=== PATIENT | female | born 1960 | race Caucasian/White ===

== ENCOUNTER → 2016-09-29 | Outpatient (CLI) | payer BC, OTHER ==
[2016-09-29 08:04] LABS: APPEARANCE,URINE CLEAR; BILIRUBIN,URINE NEGATIVE (NEGATIVE); GLUCOSE, URINE NEGATIVE (NEGATIVE); KETONES,URINE NEGATIVE (NEGATIVE); LEUKOCYTE ESTERASE,URINE TRACE (NEGATIVE); NITRITE,URINE NEGATIVE (NEGATIVE); PROTEIN,URINE NEGATIVE (NEGATIVE); URINE SPECIFIC GRAVITY 1.015; UROBILINOGEN,URINE NEGATIVE mg/dL (<2.0)
[2016-09-29 08:33] LABS: ANION GAP 11 (5-19); BLOOD UREA NITROGEN 20 mg/dL (7-20); CALCIUM 9.5 mg/dL (8.4-10.2); CARBON DIOXIDE 26 mmol/L (22-30); CHLORIDE 107 mmol/L (98-107); CREATININE RESULT 1.04 mg/dL (0.52-1.25); GLUCOSE 110 mg/dL (75-110); POTASSIUM 4.2 mmol/L (3.6-5.0); SODIUM 143.8 mmol/L (137-145)
[2016-09-30 11:38] LABS: CREATININE URINE 149.5 mg/dL (Not Estab.); MICROALBUMIN URINE 41.4 ug/mL (Not Estab.)
== END ==
LOC: OD 07:19
PROVIDERS: ATTEND Internal Medicine Nephrology
DX: N18.3 Chronic kidney disease, stage 3 (moderate) (principal)
CPT/HCPCS: 36415; 80048; 81001; 82043; 82570

== ENCOUNTER → 2017-05-10 | Outpatient (CLI) | payer BC, OTHER ==
[2017-05-10 08:22] LABS: APPEARANCE,URINE CLEAR; BILIRUBIN,URINE NEGATIVE (NEGATIVE); COLOR,URINE YELLOW; GLUCOSE, URINE NEGATIVE (NEGATIVE); KETONES,URINE NEGATIVE (NEGATIVE); LEUKOCYTE ESTERASE,URINE NEGATIVE (NEGATIVE); NITRITE,URINE NEGATIVE (NEGATIVE); PROTEIN,URINE NEGATIVE (NEGATIVE); URINE SPECIFIC GRAVITY 1.017; UROBILINOGEN,URINE NEGATIVE mg/dL (<2.0)
[2017-05-10 08:27] LABS: ABSOLUTE BASOPHILS # (AUTO) 0.1 10^3/uL (0.0-0.2); ABSOLUTE EOSINOPHILS # (AUTO) 0.1 10^3/uL (0.0-0.6); ABSOLUTE LYMPHOCYTES (AUTO) 1.8 10^3/uL (0.5-4.7); ABSOLUTE MONOCYTES (AUTO) 0.4 10^3/uL (0.1-1.4); BASOPHILS % (AUTO) 0.8 % (0-2); EOSINOPHILS % (AUTO) 1.5 % (0-6); HEMATOCRIT 41.9 % (36.0-47.0); LYMPHOCYTES % (AUTO) 27.8 % (13-45); MEAN CORPUSCULAR HEMOGLOBIN 27.3 pg (27.0-33.4); MEAN CORPUSCULAR HGB CONC 33.4 g/dL (32.0-36.0); MEAN CORPUSCULAR VOLUME 82 fl (80-97); MONOCYTES % (AUTO) 6.5 % (3-13); PLATELET COUNT 259 10^3/uL (150-450); RED BLOOD COUNT 5.13 10^6/uL (3.72-5.28); RED CELL DISTRIBUTION WIDTH 13.6 % (11.5-14.0); SEGMENTED NEUTROPHILS % (AUTO) 63.4 % (42-78); TOTAL CELLS COUNTED % (AUTO) 100 %; WHITE BLOOD COUNT 6.3 10^3/uL (4.0-10.5)
[2017-05-10 09:01] LABS: ALBUMIN 4.5 g/dL (3.5-5.0); ANION GAP 14 (5-19); BLOOD UREA NITROGEN 20 mg/dL (7-20); CALCIUM 9.7 mg/dL (8.4-10.2); CARBON DIOXIDE 27 mmol/L (22-30); CHLORIDE 104 mmol/L (98-107); GLUCOSE 107 mg/dL (75-110); PHOSPHORUS 4.5 mg/dL (2.5-4.5); POTASSIUM 4.5 mmol/L (3.6-5.0); SODIUM 144.5 mmol/L (137-145)
[2017-05-11 12:39] LABS: CREATININE URINE 145.8 mg/dL (Not Estab.); MICROALBUMIN URINE 40.8 ug/mL (Not Estab.)
== END ==
LOC: OD 07:41
PROVIDERS: ATTEND Internal Medicine Nephrology
DX: I12.9 Hypertensive chronic kidney disease with stage 1 through stage 4 chronic kidney disease, or unspecified chronic kidney disease (principal); N18.3 Chronic kidney disease, stage 3 (moderate)
CPT/HCPCS: 36415; 80048; 81001; 82040; 82043; 82306; 82570; 83970; 84100; 85025

== ENCOUNTER 2017-12-12 07:28 | Day surgery (SDC) | payer OTHER ==
[~2017-12-12 07:28] MED LIST: DIPHENHYDRAMINE HCL 50 MG/ML VIAL ONE; FLUMAZENIL INJ 0.5 MG/5 ML VIAL ONE; GLUCAGON,HUMAN RECOMB 1 MG INJ ONE; NALOXONE HCL INJ/PF 0.4 MG/1 ML SDV ONE; ONDANSETRON HCL INJ/PF 4 MG/2 ML SDV ONE
[2017-12-12] MEDS: MIDAZOLAM 2 MG/2 ML INJ ONE ×2 (07:47→07:50)
[2017-12-12] MEDS: FENTANYL CITRATE INJ/PF 100 MCG/2 ML AMPUL ONE ×3 (07:48→07:53)
--- NOTE | 2017-12-12 07:59 | Operative Report ---
Operative Report DATE OF SURGERY: 12/12/17 Operative Report: The risks benefits and alternatives of the procedure explained to the patient in detail and informed consent is obtained.A GIF Olympus video scope was inserted into the patient's mouth and hypopharynx, the esophagus is identified intubated and insufflated, the scope was then advanced through the esophagus stomach and duodenum, retroflexion maneuver is done the esophagus stomach and first and second portions of the duodenum examined PREOPERATIVE DIAGNOSIS: Epigastric pain POSTOPERATIVE DIAGNOSIS: Nodular gastritis status post biopsy rule out Helicobacter pylori OPERATION: EGD with biopsy SURGEON: MICHAEL LOPEZ ANESTHESIA: Moderate Sedation - 4 mg of Zofran, 4 mg of Versed, 100 mcg of fentanyl. Conscious sedation monitoring time 30 minutes. TISSUE REMOVED OR ALTERED: As noted above. COMPLICATIONS: None. ESTIMATED BLOOD LOSS: None. INTRAOPERATIVE FINDINGS: As noted above. PROCEDURE: Patient tolerated the procedure well. No immediate postprocedure complications are noted. Patient discharged in good condition. Discharge date 12/12/2017. Discharge diet: Regular. Discharge activity: Regular. 2-3-week follow-up to discuss findings. Patient is instructed call the office or proceed to the emergency room should there be any further problems or questions. Wait on the pathology.
[2017-12-12 09:13] VITALS: BP 108/63
== END 2017-12-12 09:10 | disposition home or self-care (01) ==
LOC: END 07:28
PROVIDERS: ATTEND Internal Medicine Gastroenterology
DX: K29.50 Unspecified chronic gastritis without bleeding (principal); B96.81 Helicobacter pylori [H. pylori] as the cause of diseases classified elsewhere; I12.9 Hypertensive chronic kidney disease with stage 1 through stage 4 chronic kidney disease, or unspecified chronic kidney disease; N18.3 Chronic kidney disease, stage 3 (moderate); F51.01 Primary insomnia
CPT/HCPCS: 43239; 88342 ×2; 88305 ×2; J2250; J3010; J2405; J1200; J1610; J2310; J3490

== ENCOUNTER → 2018-05-13 | Outpatient (CLI) | payer OTHER ==
[2018-05-13 08:24] LABS: ABSOLUTE EOSINOPHILS # (AUTO) 0.1 10^3/uL (0.0-0.6); ABSOLUTE LYMPHOCYTES (AUTO) 1.7 10^3/uL (0.5-4.7); ABSOLUTE MONOCYTES (AUTO) 0.4 10^3/uL (0.1-1.4); ABSOLUTE NEUT (AUTO) 2.9 10^3/uL (1.7-8.2); BASOPHILS % (AUTO) 0.6 % (0-2); EOSINOPHILS % (AUTO) 2.1 % (0-6); HEMATOCRIT 39.6 % (36.0-47.0); HEMOGLOBIN 13.5 g/dL (12.0-15.5); LYMPHOCYTES % (AUTO) 33.1 % (13-45); MEAN CORPUSCULAR HEMOGLOBIN 28.5 pg (27.0-33.4); MEAN CORPUSCULAR HGB CONC 34.2 g/dL (32.0-36.0); MEAN CORPUSCULAR VOLUME 83 fl (80-97); MONOCYTES % (AUTO) 7.6 % (3-13); PLATELET COUNT 215 10^3/uL (150-450); RED BLOOD COUNT 4.75 10^6/uL (3.72-5.28); RED CELL DISTRIBUTION WIDTH 13.2 % (11.5-14.0); SEGMENTED NEUTROPHILS % (AUTO) 56.6 % (42-78); TOTAL CELLS COUNTED % (AUTO) 100 %; WHITE BLOOD COUNT 5.2 10^3/uL (4.0-10.5)
[2018-05-13 08:47] LABS: APPEARANCE,URINE CLEAR; BILIRUBIN,URINE NEGATIVE (NEGATIVE); COLOR,URINE YELLOW; GLUCOSE, URINE NEGATIVE (NEGATIVE); KETONES,URINE NEGATIVE (NEGATIVE); LEUKOCYTE ESTERASE,URINE MODERATE (NEGATIVE); NITRITE,URINE NEGATIVE (NEGATIVE); PROTEIN,URINE NEGATIVE (NEGATIVE); UROBILINOGEN,URINE NEGATIVE mg/dL (<2.0)
[2018-05-13 08:51] LABS: ALBUMIN 3.9 g/dL (3.5-5.0); ANION GAP 10 (5-19); BLOOD UREA NITROGEN 21 mg/dL (7-20); CALCIUM 9.6 mg/dL (8.4-10.2); CARBON DIOXIDE 30 mmol/L (22-30); CHLORIDE 101 mmol/L (98-107); GLUCOSE 109 mg/dL (75-110); PHOSPHORUS 4.2 mg/dL (2.5-4.5); POTASSIUM 3.3 mmol/L (3.6-5.0); SODIUM 141.2 mmol/L (137-145)
[2018-05-14 12:38] LABS: CREATININE URINE 152.4 mg/dL (Not Estab.); MICROALBUMIN URINE 3.8 ug/mL (Not Estab.)
== END ==
LOC: OD 07:31
PROVIDERS: ATTEND Internal Medicine Nephrology
DX: I12.9 Hypertensive chronic kidney disease with stage 1 through stage 4 chronic kidney disease, or unspecified chronic kidney disease (principal); N18.3 Chronic kidney disease, stage 3 (moderate)
CPT/HCPCS: 36415; 80048; 81001; 82040; 82043; 82306; 82570; 83970; 84100; 85025

== ENCOUNTER 2018-10-28 10:48 | Emergency (ER) | payer OTHER ==
[2018-10-28] MEDS ORDERED: PROCHLORPERAZINE EDISYLATE INJ 10 MG/2 ML VIAL IV ONE (11:37)
[2018-10-28] MEDS ORDERED: DIPHENHYDRAMINE HCL 50 MG/ML VIAL IV ONE (11:37)
[2018-10-28] MEDS ORDERED: NORMAL SALINE 1000 ML 1,000 ML IV ONE (11:37)
--- NOTE | 2018-10-28 12:39 | ER Document Report ---
Entered by WALT SUÁREZ SCRIBE 10/28/18 1143 Acting as scribe for:SALINA WAGNER MD ED General - General Chief Complaint: Chest Tightness Stated Complaint: HEADACHE/DIZZINESS Time Seen by Provider: 10/28/18 11:08 Primary Care Provider: AUGUSTINE BARNES DO [Primary Care Provider] - Follow up as needed Mode of Arrival: Ambulatory Information source: Patient Notes: 58-year-old female who presents to the emergency department today with com plaints of a 2-week history of a constant headache, dizziness for the last few days, and chest tightness for the last day or two. Patient states when the chest pain began she also developed some shortness of breath. Patient takes aspirin daily. Patient denies a family history of cardiac disease. TRAVEL OUTSIDE OF THE [place] IN LAST 30 DAYS: No - Related Data Allergies/Adverse Reactions: acetaminophen [From Percocet] Allergy (Intermediate, Verified 10/28/18 10:53) Hives codeine Allergy (Intermediate, Verified 10/28/18 10:53) Hives morphine Allergy (Intermediate, Verified 10/28/18 10:53) Hives oxycodone [From Percocet] Allergy (Intermediate, Verified 10/28/18 10:53) Hives oxycodone HCl [From Percocet] Adverse Reaction (Intermediate, Verified 10/28/18 10:53) Itching, Tachycardia flu vaccine Allergy (Severe, Uncoded 10/28/18 10:53) n and v Past Medical History - General Information source: Patient - Social History Smoking Status: Former Smoker - quit 30 years ago Frequency of alcohol use: None Drug Abuse: None Lives with: Family Family History: Reviewed & Not Pertinent Patient has suicidal ideation: No Patient has homicidal ideation: No - Past Medical History Cardiac Medical History: Reports: Hx Hypertension, Hx Heart Murmur Renal/ Medical History: Reports: Hx Renal Insufficiency - Stage III GI Medical History: Reports: Hx Diverticulitis, Hx Gastroesophageal Reflux Disease Musculoskeletal Medical History: Reports Hx Arthritis Past Surgical History: Reports: Hx Abdominal Surgery - colon resection, Hx Orthopedic Surgery - Rt shoulder rotator cuff repair - Immunizations Hx Diphtheria, Pertussis, Tetanus Vaccination: Yes Hx Pneumococcal Vaccination: 03/05/10 Review of Systems - Review of Systems Constitutional: No symptoms reported EENT: No symptoms reported Cardiovascular: See HPI, Chest pain Respiratory: See HPI, Short of breath Gastrointestinal: No symptoms reported Genitourinary: No symptoms reported Female Genitourinary: No symptoms reported Musculoskeletal: No symptoms reported Skin: No symptoms reported Hematologic/Lymphatic: No symptoms reported Neurological/Psychological: See HPI, Headaches -: Yes All other systems reviewed and negative Physical Exam - Vital signs Vitals: Temp Pulse Resp BP Pulse Ox 98.0 F 57 L 16 131/52 H 96 10/28/18 11:01 10/28/18 11:01 10/28/18 11:01 10/28/18 11:01 10/28/18 11:01 - Notes Notes: Physical Exam: General: Alert, appears well. HEENT: Normocephalic. Atraumatic. PERRL. Extraocular movements intact. Oropharynx clear. Neck: Supple. Non-tender. Respiratory: No respiratory distress. Clear and equal breath sounds bilaterally. No anterior chest wall tenderness with palpation. Cardiovascular: Regular rate and rhythm. 2/6 systolic murmur. Abdominal: Normal Inspection. Non-tender. No distension. Normal Bowel Sounds. Back: No gross abnormalities. Extremities: Moves all four extremities. Upper extremities: Normal inspection. Normal ROM. Lower extremities: Normal inspection. No edema. Normal ROM. Calves are symmetric in size without tenderness. Neurological: Normal cognition. AAOx4. Normal speech. Psychological: Normal affect. Normal Mood. Skin: Warm. Dry. Normal color. Course - Re-evaluation Re-evalutation: 10/28/18 15:34 At this time the headache is gone. The patient states there is no dizziness when she got up to go to the bathroom. - Vital Signs Vital signs: Temp Pulse Resp BP Pulse Ox 98.0 F 57 L 13 119/46 L 96 10/28/18 11:01 10/28/18 11:01 10/28/18 14:30 10/28/18 14:31 10/28/18 14:31 - Laboratory Result Diagrams: 10/28/18 12:23 10/28/18 12:23 Laboratory results interpreted by me: 10/28/18 10/28/18 12:23 13:04 Est GFR (MDRD) Non-Af 59 L AST 38 H Ur Leukocyte Esterase MODERATE H - EKG Interpretation by Ks EKG shows normal: Sinus rhythm, [place], Intervals, QRS Complexes. abnormal: ST-T Waves - Nonspecific diffuse T abnormalities Rate: Normal - 57 Rhythm: NSR Discharge - Discharge Clinical Impression: Dizziness, Chest tightness Headache Qualifiers: Headache type: unspecified Headache chronicity pattern: acute headache Intractability: not intractable Qualified Code(s): R51 - Headache Condition: Stable Disposition: HOME, SELF-CARE Additional Instructions: Dizziness: Under normal circumstances, your sense of balance is controlled by a number of signals that your brain receives from several locations: Eyes. No matter what your position, visual signals help you determine where your body is in space and how it's moving. Sensory nerves. These are in your skin, muscles and joints. Sensory nerves send messages to your brain about body movements and positions. Inner ear. The organ of balance in your inner ear is the vestibular labyrinth. It includes loop-shaped structures (semicircular canals) that contain fluid and fine, hair-like sensors that monitor the rotation of your head. Near the semicircular canals are the utricle and saccule, which contain tiny particl es called otoconia (a-[id number]-[id number]). These particles are attached to sensors that help detect gravity and [id number]-[id number]-wqvln motion. Good balance depends on at least two of these three sensory systems working well. For instance, closing your eyes while washing your hair in the shower doesn't mean you'll lose your balance. Signals from your inner ear and sensory nerves help keep you upright. However, if your central nervous system can't process signals from all of these locations, if the messages are contradictory, or if the sensory systems aren't functioning properly, you may experience loss of balance. Dizziness may have a number of potential causes. These may include: Headache: The physician does not feel that the headache you are experiencing has a serious underlying cause. Most headaches are due to emotional stress, with resultant muscle tension (tension headache). Occasionally, headaches are secondary to changes in the blood vessels of the scalp (vascular headache and migraine headache). Sometimes, a headache is the first symptom of another developing illness, such as a viral infection. You have no evidence of stroke, bleeding, meningitis, or other serious cause of your headache. The treatment of headaches varies with the severity and cause of the pain. Not all headaches need pain shots. In fact, there is evidence that using narcotics for headaches may make them worse in the long run. The physician will determine the therapy that's in your best interest. If you develop a fever, if the headache is different from any you've previously experienced, or if the headache progressively worsens, then call your physician at once or go to the emergency room. Chest Pain of Unclear Cause: The exact cause of your chest pain isn't clear. Fortunately, there is no evidence of a dangerous medical condition. Further testing may be required to find the source of the pain. Most often, we find that this pain is coming from the chest wall -- the muscles or rib joints in the chest. But chest pain can come from the lung and lung lining, the esophagus, the heart valves or heart lining, and even the stomach or gallbladder. Rest. Eat lightly until the pain is gone. We may prescribe medicine for pain and inflammation. You should call the physician immediately if the pain radiates to the shoulder, jaw or arms; if you start to run a fever or develop a cough; or if you develop shortness of breath, or other new or alarming symptoms. Take the meclizine as prescribed for dizziness if needed. Take Tylenol for your headache if needed. Would be best to avoid medications like ibuprofen and Advil due to your renal function. Follow-up with your primary care provider if not improving. RETURN TO THE EMERGENCY ROOM IF ANY NEW OR WORSENING SYMPTOMS. Prescriptions: Meclizine HCl [Antivert 25 mg Tablet] 25 mg PO TID PRN #25 tablet PRN Reason: Referrals: AUGUSTINE BARNES DO [Primary Care Provider] - Follow up as needed [place] Attestation: 10/28/18 12:39 I personally performed the services described in the documentation, reviewed and edited the documentation which was dictated to the scribe in my presence, and it accurately records my words and actions. I personally performed the services described in the documentation, reviewed and edited the documentation which was dictated to the scribe in my presence, and it accurately records my words and actions.
[2018-10-28 12:43] LABS: ABSOLUTE EOSINOPHILS # (AUTO) 0.1 10^3/uL (0.0-0.6); ABSOLUTE LYMPHOCYTES (AUTO) 1.4 10^3/uL (0.5-4.7); ABSOLUTE MONOCYTES (AUTO) 0.5 10^3/uL (0.1-1.4); BASOPHILS % (AUTO) 0.4 % (0-2); EOSINOPHILS % (AUTO) 1.5 % (0-6); HEMATOCRIT 43.3 % (36.0-47.0); HEMOGLOBIN 14.3 g/dL (12.0-15.5); LYMPHOCYTES % (AUTO) 23.1 % (13-45); MEAN CORPUSCULAR HEMOGLOBIN 28.4 pg (27.0-33.4); MEAN CORPUSCULAR VOLUME 86 fl (80-97); MONOCYTES % (AUTO) 8.6 % (3-13); PLATELET COUNT 222 10^3/uL (150-450); RED BLOOD COUNT 5.03 10^6/uL (3.72-5.28); RED CELL DISTRIBUTION WIDTH 13.7 % (11.5-14.0); SEGMENTED NEUTROPHILS % (AUTO) 66.4 % (42-78); TOTAL CELLS COUNTED % (AUTO) 100 %
[2018-10-28 13:09] LABS: ALKALINE PHOSPHATASE 56 U/L (38-126); ANION GAP 9 (5-19); ASPARTATE AMINO TRANSFERASE 38 U/L (14-36); BILIRUBIN,DIRECT 0.4 mg/dL (0.0-0.4); BILIRUBIN,TOTAL 0.6 mg/dL (0.2-1.3); BLOOD UREA NITROGEN 16 mg/dL (7-20); CALCIUM 9.4 mg/dL (8.4-10.2); CARBON DIOXIDE 28 mmol/L (22-30); CHLORIDE 105 mmol/L (98-107); GLUCOSE 98 mg/dL (75-110); TOTAL PROTEIN 6.9 g/dL (6.3-8.2)
[2018-10-28 13:10] LABS: CREATINE KINASE 68 U/L (30-135); POTASSIUM 4.1 mmol/L (3.6-5.0)
[2018-10-28 13:14] LABS: APPEARANCE,URINE CLEAR; BILIRUBIN,URINE NEGATIVE (NEGATIVE); COLOR,URINE YELLOW; GLUCOSE, URINE NEGATIVE (NEGATIVE); KETONES,URINE NEGATIVE (NEGATIVE); LEUKOCYTE ESTERASE,URINE MODERATE (NEGATIVE); NITRITE,URINE NEGATIVE (NEGATIVE); PROTEIN,URINE NEGATIVE (NEGATIVE); UROBILINOGEN,URINE NEGATIVE mg/dL (<2.0)
--- NOTE | 2018-10-28 13:18 | EKG REPORT ---
SEVERITY:- ABNORMAL ECG - SINUS RHYTHM NONSPECIFIC T ABNORMALITIES, DIFFUSE LEADS : Confirmed by: Kalia Valenzuela MD 28-Oct-2018 13:17:58
[2018-10-28 13:22] LABS: CREATINE KINASE MB 0.97 ng/mL (<4.55)
[2018-10-28 13:52] LABS: TROPONIN I < 0.012 ng/mL
[2018-10-28 16:04] VITALS: BP 146/101
== END 2018-10-28 16:03 | disposition home or self-care (01) ==
LOC: ER 10:48
DX: R07.9 Chest pain, unspecified (principal); R51 Headache; R42 Dizziness and giddiness; R06.02 Shortness of breath; Z87.891 Personal history of nicotine dependence; I10 Essential (primary) hypertension
CPT/HCPCS: 93005; 36415; 82553; 82550; 85025; 80053; 81001; 84484; 85379; 93010; J1200; J0780; J7030; 96361; 96374; 96375; 99284

== ENCOUNTER → 2018-11-19 | Outpatient (CLI) | payer OTHER ==
[2018-11-19 08:04] LABS: ANION GAP 9 (5-19); BLOOD UREA NITROGEN 20 mg/dL (7-20); CALCIUM 9.6 mg/dL (8.4-10.2); CARBON DIOXIDE 32 mmol/L (22-30); CHLORIDE 100 mmol/L (98-107); GLUCOSE 127 mg/dL (75-110)
== END ==
LOC: OD 07:24
PROVIDERS: ATTEND Internal Medicine Nephrology
DX: N18.3 Chronic kidney disease, stage 3 (moderate) (principal)
CPT/HCPCS: 36415; 80048

== ENCOUNTER 2019-01-21 12:14 | Emergency (ER) | payer OTHER ==
--- NOTE | 2019-01-21 12:24 | ER Document Report ---
ED Neuro Symptoms/Deficit - General Chief Complaint: S/S of Possible Stroke Stated Complaint: POSSIBLE STROKE Time Seen by Provider: 01/21/19 12:21 Primary Care Provider: MARLINE AUSTIN MD [ACTIVE STAFF] - Follow up as needed Notes: Ms. Smith is a 58-year-old female with PMH of hypertension brought into the emergency department by EMS for possible strokelike symptoms. EMS states that she was at work checking her blood pressure when suddenly coworkers heard a thud and found her on the ground. Patient states that she feels that she passed out. Initially EMS stated she had some right hand weakness as well as some mild slurred speech. However the patient states that her symptoms have since resolved. She does endorse recently being placed on gabapentin and has been increasing her dose on a daily basis now to 3 tablets daily. Patient has only eaten a banana and grapes today, and had a small amount of tea, but no water. Pt endorses feeling lightheaded yesterday. She denies any chest pain, shortness of breath or cough. TRAVEL OUTSIDE OF THE [place] IN LAST 30 DAYS: No - Related Data Allergies/Adverse Reactions: acetaminophen [From Percocet] Allergy (Intermediate, Verified 01/21/19 12:29) Hives codeine Allergy (Intermediate, Verified 01/21/19 12:29) Hives morphine Allergy (Intermediate, Verified 01/21/19 12:29) Hives oxycodone [From Percocet] Allergy (Intermediate, Verified 01/21/19 12:29) Hives oxycodone HCl [From Percocet] Adverse Reaction (Intermediate, Verified 01/21/19 12:29) Itching, Tachycardia flu vaccine Allergy (Severe, Uncoded 01/21/19 12:29) n and v Past Medical History - Social History Smoking Status: Never Smoker Family History: Reviewed & Not Pertinent - Past Medical History Cardiac Medical History: Reports: Hx Hypertension, Hx Heart Murmur Denies: Hx Coronary Artery Disease, Hx Heart Attack Pulmonary Medical History: Denies: Hx Asthma, Hx Bronchitis, Hx COPD, Hx Pneumonia, Hx Tuberculosis Neurological Medical History: Denies: Hx Cerebrovascular Accident, Hx Seizures Endocrine Medical History: Denies: Hx Diabetes Mellitus Type 1, Hx Diabetes Mellitus Type 2 Renal/ Medical History: Reports: Hx Renal Insufficiency - Stage III. Denies: Hx Peritoneal Dialysis GI Medical History: Reports: Hx Diverticulitis, Hx Gastroesophageal Reflux Disease Musculoskeletal Medical History: Reports Hx Arthritis Past Surgical History: Reports: Hx Abdominal Surgery - colon resection, Hx Orthopedic Surgery - Rt shoulder rotator cuff repair, Hx Rectal Surgery - colorectal resection. Denies: Hx Hysterectomy - Immunizations Hx Diphtheria, Pertussis, Tetanus Vaccination: Yes Hx Pneumococcal Vaccination: 03/05/10 Course - Re-evaluation Re-evalutation: Patient is generally well-appearing nontoxic. Initial vitals within normal limits. EKG nonischemic. Differential diagnosis includes syncopal episode, dehydration, ICH (less likely), CVA, electrolyte abnormality She was evaluated at the ambulance bay as soon as she did. Her NIH stroke scale was 0 and she had normal resource conservation specialist bilaterally as well as equal facial movement/symmetry. EKG nonischemic. CT had within normal limits, I discussed this with the radiologist. BC does show hemoconcentration. CMP notable for elevated BUN to creatinine ratio. Troponin is negative. Potassium was slightly low although the patient does states she takes a potassium tablet. 01/21/19 15:45 Patient states she feels significantly improved, no longer lightheaded however she does endorse a headache. Her second liter of fluids, Toradol as well as Tylenol for her headache. Patient's potassium was also noted to be low so she will be given a p.o. dose of potassium repletion. 01/21/19 15:46 Patient's headache has resolved. UA unremarkable. Patient given return precautions. Recommended to drink plenty of fluids. - Laboratory Result Diagrams: 01/21/19 12:20 01/21/19 12:20 - EKG Interpretation by Me EKG shows normal: Sinus rhythm, QRS Complexes, ST-T Waves Rate: Normal Rhythm: NSR ED NIH Stroke Scale - NIH Stroke Scale When completed:: Before Alteplase *: 1. NIH scale should be completed with appropriate accompanying assessment tools. *: 2. The NIH should reflect what the patient is capable of doing and should not be coached by the clinician. 1a. Level of Consciousness: 0=Alert;keenly responsive -: 1=Drowsy -: 2=Obtunded -: 3=Coma/unresponsive or reflex to noxious stimuli. 1a. Responses: 0 1b. Orientation Questions: a. What month is it? -: b. How old are you? -: 0=Answers both questions correctly. -: 1=Answers one question correctly or patient is intubated or has orotracheal trauma. -: 2=Answers neither question correctly. 1b. Responses: 0 1c. Response to commands: a. Open and close eyes? -: b. Sanitary Engineering Teacher and release hand? -: Credit is given despite weakness. Demonstration of task is permitted. Substitute command if hands cannot be used. -: 0=Performs both tasks correctly -: 1=Performs one task correctly -: 2=Performs neither task correctly 1c. Responses: 0 2. Gaze: Establish eye contact and instruct patient to "Follow my finger" -: 0=Normal -: 1=Partial gaze palsy. Gaze is abnormal in one or both eyes, but where forced deviation or total gaze paresis is not present. -: 2=Forced deviation or total gaze paresis. 2. Responses: 0 3. Visual Romo: Sees fingers in all four quadrants. -: 0=No visual loss. -: 1=Partial hemianopsia. -: 2=Complete hemianopsia. -: 3=Bilateral hemianopsia (including Cortical blindness) 3. Responses: 0 4. Facial Movement: Instruct patient to: -: a. Show me your teeth -: b. Raise your eyebrows -: c. Close your eyes -: d. Smile -: 0=Normal symmetrical movement -: 1=Minor paralysis (flattened nasolabial fold, asymmetry on smiling). -: 2=Partial paralysis (total or near total paralysis of lower face). -: 3=Complete paralysis of upper and lower face 4. Responses: 0 5. Motor functions (left arm): Alternate sides and extend each arm with palms down (90 degrees if sitting or 45 degrees for supine). -: 0=No drift;limb holds for full 10 seconds. -: 1=Drift; limb holds but drifts down before full 10 seconds, but does not hit bed. -: 2=Some effort against gravity; limb cannot get to or maintain position. -: 3=No effort against gravity; limb falls. -: 4=No movement. -: UN=Amputation, joint fusion, explain in comments. 5. Responses (left arm): 0 5. Motor Functions (right arm): Alternate sides and extend each arm with palms down (90 degrees if sitting or 45 degrees for supine). -: 0=No drift;limb holds for full 10 seconds. -: 1=Drift; limb holds but drifts down before full 10 seconds, but does not hit bed. -: 2=Some effort against gravity; limb cannot get to or maintain position. -: 3=No effort against gravity; limb falls. -: 4=No movement. -: UN=Amputation, joint fusion, explain in comments. 5. Responses (right arm): 0 6. Motor Functions (left leg): With patient lying supine, alternate sides and extend each leg (30 degrees always while supine). -: 0=No drift, leg holds position for full 5 seconds -: 1=Drift; leg falls before full 5 seconds but does not hit bed. -: 2=Some effort against gravity, leg falls to bed but some effort against gravity. -: 3=No effort against gravity, leg falls to bed immediately. -: 4=No movement. -: UN=Amputation, joint fusion; explain in comments. 6. Responses (left leg): 0 6. Motor Functions (right leg): With patient lying supine, alternate sides and extend each leg (30 degrees always while supine). -: 0=No drift, leg holds position for full 5 seconds -: 1=Drift; leg falls before full 5 seconds but does not hit bed. -: 2=Some effort against gravity, leg falls to bed but some effort against gravity. -: 3=No effort against gravity, leg falls to bed immediately. -: 4=No movement. -: UN=Amputation, joint fusion; explain in comments. 6. Responses (right leg): 0 7. Limb Ataxia: With eyes open instruct patient to: -: a. "Touch your finger to your nose". -: b. "Touch your heel to your trujillo" -: 0=Absent -: 1=Present in one limb. -: 2=Present in two limbs. -: UN=Amputation or joint fusion; explain in comments. 7. Responses: 0 8. Sensory: Test sensation using pinprick or noxious stimuli. Test as many body parts as possible. -: 0=Normal;no sensory loss -: 1=Mile to moderate sensory loss (patient feels pin prick but is less sharp on affected side). -: 2=Severe or total sensory loss. 8. Responses: 0 9. Best Language: Instruct patient to: -: a. "Describe what you see in this picture." -: b. "Name the items in this picture." -: c. "Read these sentences." -: 0=No aphasia, normal -: 1=Mild to moderate aphasia. -: 2=Severe aphasia -: 3=Mute, global aphasia, no usable speech or auditory comprehension. 9. Responses: 0 10. Articulation, Dysarthia: Instruct patient to: -: "Read these words" or "Repeat these words" -: 0=Normal -: 1=Mild to moderate; patient may slur some words but can be understood without difficulty. -: 2=Severe; patients speech so slurred as to be unintelligible in the absence of dysphasia. -: UN=Intubated or other physical barrier, explain in comments. 11. Extinction or inattention: 0=No abnormality -: 1= Visual, tactile, auditory, spatial, or personal inattention or extinction to bilateral simulation in one or the sensory modalities. -: 2=Profound edwardo-inattention or edwardo-inattention to more than one modality; does not recognize own hand. 11. Responses: 0 Total Score: 0 Discharge - Discharge Clinical Impression: Dehydration, Syncope, Scalp hematoma Condition: Good Disposition: HOME, SELF-CARE Instructions: Dehydration ([facility]), Syncopal Episode ([facility]) Additional Instructions: It is important to drink plenty of fluids and stay well-hydrated. Make sure that you eat foods high in potassium to continue keeping her potassium elevated. Follow-up with your primary care doctor as needed. If you develop weakness, worsening headache, or any other concerning symptoms, return to the ED for further evaluation. Referrals: MARLINE AUSTIN MD [ACTIVE STAFF] - Follow up as needed
--- NOTE | 2019-01-21 12:37 | RADIOLOGY REPORT (SQ) ---
EXAM DESCRIPTION: CT HEAD WITHOUT COMPLETED DATE/TIME: 01/21/2019 12:23 pm REASON FOR STUDY: stroke s/s COMPARISON: None. TECHNIQUE: Axial images acquired through the brain without intravenous contrast. Images reviewed wi th bone, brain and subdural windows. Additional sagittal and coronal reconstructions were generated. Images stored on PACS. All CT scanners at this facility use dose modulation, iterative reconstruction, and/or weight based d osing when appropriate to reduce radiation dose to as low as reasonably achievable (ALARA). [facility]: Dose Right [facility]: CareDose [facility]: Dose Right [facility]: Teradose 4D [facility]: Proclivity Systems RADIATION DOSE: CT Rad equipment meets quality standard of care and radiation dose reduction techniq ues were employed. CTDIvol: 53.2 mGy. DLP: 1044 mGy-cm. mGy. LIMITATIONS: None. FINDINGS: VENTRICLES: Normal size and contour. CEREBRUM: No masses. No hemorrhage. No midline shift. No evidence for acute infarction. Normal gra y/white matter differentiation. No areas of low density in the white matter. CEREBELLUM: No masses. No hemorrhage. No alteration of density. No evidence for acute infarction. EXTRAAXIAL SPACES: No fluid collections. No masses. ORBITS AND GLOBE: No intra- or extraconal masses. Normal contour of globe without masses. CALVARIUM: No fracture. PARANASAL SINUSES: No fluid or mucosal thickening. SOFT TISSUES: Soft tissue swelling and hematoma over the right frontal calvarium. OTHER: No other significant finding. IMPRESSION: 1. No evidence of acute hemorrhage, large vascular territory infarct infarct or other a cute intracranial process. 2. Soft tissue swelling and hematoma over the right frontal calvarium. No fracture. EVIDENCE OF ACUTE STROKE: NO. Pertinent positive or negative findings of the imaging study reported as a CRITICAL EXAM to THOMAS MIRELES MD at12:29 on 01/21/2019. Category of Critical Exam: Negative code stroke COMMENT: Quality ID # [id number]: Final reports with documentation of one or more dose reduction techniques (e.g., Automated exposure control, adjustment of the mA and/or kV according to patient size, use of iterative reconstruction technique) TECHNICAL DOCUMENTATION: JOB ID: [id number] [employer]- All Rights Reserved Reading location - IP/workstation name: [email or web address]
[2019-01-21 12:38] LABS: ABSOLUTE BASOPHILS # (AUTO) 0.1 10^3/uL (0.0-0.2); ABSOLUTE EOSINOPHILS # (AUTO) 0.3 10^3/uL (0.0-0.6); ABSOLUTE LYMPHOCYTES (AUTO) 4.2 10^3/uL (0.5-4.7); ABSOLUTE MONOCYTES (AUTO) 0.8 10^3/uL (0.1-1.4); ABSOLUTE NEUT (AUTO) 4.8 10^3/uL (1.7-8.2); BASOPHILS % (AUTO) 0.6 % (0-2); EOSINOPHILS % (AUTO) 2.7 % (0-6); HEMATOCRIT 45.1 % (36.0-47.0); HEMOGLOBIN 15.1 g/dL (12.0-15.5); LYMPHOCYTES % (AUTO) 41.6 % (13-45); MEAN CORPUSCULAR HEMOGLOBIN 28.6 pg (27.0-33.4); MEAN CORPUSCULAR HGB CONC 33.5 g/dL (32.0-36.0); MEAN CORPUSCULAR VOLUME 85 fl (80-97); MONOCYTES % (AUTO) 7.7 % (3-13); PLATELET COUNT 302 10^3/uL (150-450); RED BLOOD COUNT 5.29 10^6/uL (3.72-5.28); RED CELL DISTRIBUTION WIDTH 13.5 % (11.5-14.0); SEGMENTED NEUTROPHILS % (AUTO) 47.4 % (42-78); TOTAL CELLS COUNTED % (AUTO) 100 %; WHITE BLOOD COUNT 10.1 10^3/uL (4.0-10.5)
[2019-01-21 12:39] LABS: INTERNATIONAL RATION (INR) 0.92; PARTIAL THROMBOPLASTIN TIME 25.2 SEC (23.5-35.8); PROTHROMBIN TIME 12.4 SEC (11.4-15.4)
--- NOTE | 2019-01-21 12:54 | RADIOLOGY REPORT (SQ) ---
EXAM DESCRIPTION: CHEST SINGLE VIEW COMPLETED DATE/TIME: 01/21/2019 12:43 pm REASON FOR STUDY: stroke s/s COMPARISON: 03/06/2015 EXAM PARAMETERS: NUMBER OF VIEWS: One view. TECHNIQUE: Single frontal radiographic view of the chest acquired. RADIATION DOSE: NA LIMITATIONS: None. FINDINGS: LUNGS AND PLEURA: No opacities, masses or pneumothorax. No pleural effusion. MEDIASTINUM AND HILAR STRUCTURES: No masses. Contour normal. HEART AND VASCULAR STRUCTURES: Heart normal in size. Normal vasculature. BONES: No acute findings. HARDWARE: None in the chest. OTHER: No other significant finding. IMPRESSION: NO ACUTE RADIOGRAPHIC FINDING IN THE CHEST. TECHNICAL DOCUMENTATION: JOB ID: [id number] [employer]- All Rights Reserved Reading location - IP/workstation name: [email or web address]
[2019-01-21 13:02] LABS: BLOOD UREA NITROGEN 24 mg/dL (7-20); CALCIUM 9.6 mg/dL (8.4-10.2); GLUCOSE 127 mg/dL (75-110)
[2019-01-21 13:03] LABS: ALBUMIN 4.6 g/dL (3.5-5.0); ALKALINE PHOSPHATASE 70 U/L (38-126); ANION GAP 14 (5-19); ASPARTATE AMINO TRANSFERASE 24 U/L (14-36); BILIRUBIN,DIRECT 0.1 mg/dL (0.0-0.4); BILIRUBIN,TOTAL 0.4 mg/dL (0.2-1.3); CARBON DIOXIDE 28 mmol/L (22-30); CHLORIDE 97 mmol/L (98-107); CREATINE KINASE 80 U/L (30-135); POTASSIUM 3.5 mmol/L (3.6-5.0); TOTAL PROTEIN 7.8 g/dL (6.3-8.2)
[2019-01-21] MEDS ORDERED: NORMAL SALINE 1000 ML 1,000 ML IV ONE ×2 (13:08→15:27)
[2019-01-21 13:10] LABS: CREATINE KINASE MB 1.93 ng/mL (<4.55)
[2019-01-21 13:11] LABS: TROPONIN I < 0.012 ng/mL
--- NOTE | 2019-01-21 13:35 | EKG REPORT ---
SEVERITY:- BORDERLINE ECG - SINUS RHYTHM PROBABLE LEFT ATRIAL ABNORMALITY BORDERLINE T ABNORMALITIES, INFERIOR LEADS : Confirmed by: Kalia Valenzuela MD 21-Jan-2019 13:34:22
[2019-01-21] MEDS ORDERED: POTASSIUM CHLORIDE 10 MEQ CAPSULE.ER PO ONE (15:27)
[2019-01-21] MEDS ORDERED: ACETAMINOPHEN 325 MG TABLET PO ONE (15:35)
[2019-01-21] MEDS ORDERED: KETOROLAC TROMETHAMINE INJ/PF 30 MG/1 ML SDV IV ONE (15:36)
[2019-01-21 16:27] LABS: APPEARANCE,URINE CLEAR; BILIRUBIN,URINE NEGATIVE (NEGATIVE); COLOR,URINE STRAW; GLUCOSE, URINE NEGATIVE (NEGATIVE); KETONES,URINE NEGATIVE (NEGATIVE); LEUKOCYTE ESTERASE,URINE NEGATIVE (NEGATIVE); NITRITE,URINE NEGATIVE (NEGATIVE); PROTEIN,URINE NEGATIVE (NEGATIVE); UROBILINOGEN,URINE NEGATIVE mg/dL (<2.0)
[2019-01-21 17:09] VITALS: BP 129/59
== END 2019-01-21 17:39 | disposition home or self-care (01) ==
LOC: ER 12:14
DX: R55 Syncope and collapse (principal); E86.0 Dehydration; S00.03XA Contusion of scalp, initial encounter; X58.XXXA Exposure to other specified factors, initial encounter; I10 Essential (primary) hypertension; R51 Headache; Z88.8 Allergy status to other drugs, medicaments and biological substances; Z88.5 Allergy status to narcotic agent; Z88.7 Allergy status to serum and vaccine; Z79.899 Other long term (current) drug therapy
CPT/HCPCS: 93005; 36415; 82553; 82962; 82550; 85025; 85610; 85730; 80053; 81001; 84484; 71045; 70450; 93010; J1885; J7030; 96361; 96374; 99285

== ENCOUNTER → 2019-05-26 | Outpatient (CLI) | payer OTHER ==
--- NOTE | 2019-05-26 16:25 | RADIOLOGY REPORT (SQ) ---
EXAM DESCRIPTION: STERNOCLAVICULAR JOINT COMPLETED DATE/TIME: 05/26/2019 4:13 pm REASON FOR STUDY: HYPERTROPHY OF BONE, UNSPECIFIED SHOULDER COMPARISON: None. TECHNIQUE: Three views sternoclavicular joint. LIMITATIONS: None. FINDINGS: No evidence of bone lesion or dislocation. IMPRESSION: Normal. TECHNICAL DOCUMENTATION: JOB ID: [id number] 2010 [employer]- All Rights Reserved Reading location - IP/workstation name: [email or web address]
== END ==
LOC: OD 15:57
PROVIDERS: ATTEND Family Medicine
DX: M89.319 Hypertrophy of bone, unspecified shoulder (principal)
CPT/HCPCS: 71130

== ENCOUNTER 2020-03-16 06:50 | Day surgery (SDC) | payer OTHER ==
[2020-03-16] MEDS ORDERED: PROPOFOL INJ 200 MG/20 ML VIAL IV ONE (07:11)
[2020-03-16] MEDS ORDERED: LIDOCAINE 2% INJ (20 MG/ML) 20 ML MDV ONE (07:14)
[2020-03-16 08:46] VITALS: BP 113/88
--- NOTE | 2020-03-16 11:32 | Operative Report ---
Operative Report DATE OF SURGERY: 03/16/20 Operative Report: The risks benefits and alternatives of the procedure explained to the patient in detail and informed consent is obtained.A GIF Olympus video scope was inserted into the patient's mouth and hypopharynx, the esophagus is identified intubated and insufflated ,the scope was then advanced through the esophagus stomach and duodenum ,retroflexion maneuver is done ,the esophagus stomach and first and second portions of the duodenum examined PREOPERATIVE DIAGNOSIS: Dysphagia POSTOPERATIVE DIAGNOSIS: Gastritis status post biopsy. Schatzki's ring status post breakage. Mild esophagitis OPERATION: EGD with biopsy SURGEON: MICHAEL LOPEZ ANESTHESIA: LMAC TISSUE REMOVED OR ALTERED: As noted above. COMPLICATIONS: None. ESTIMATED BLOOD LOSS: None. INTRAOPERATIVE FINDINGS: As noted above. PROCEDURE: Patient tolerated the procedure well. No immediate postprocedure complications are noted. Patient is discharged in good condition. Discharge date 03/16/2020. Discharge diet: Regular. Discharge activity: Regular. 2 to 3-week follow-up to discuss findings. Patient is instructed to call the office or proceed to the emergency room should there be any further problems or questions. Wait on the pathology.
== END 2020-03-16 08:48 | disposition home or self-care (01) ==
LOC: OROUT 06:50
PROVIDERS: ATTEND Internal Medicine Gastroenterology
DX: K20.90 Esophagitis, unspecified without bleeding (principal); K22.2 Esophageal obstruction; K29.70 Gastritis, unspecified, without bleeding; K29.80 Duodenitis without bleeding; I12.9 Hypertensive chronic kidney disease with stage 1 through stage 4 chronic kidney disease, or unspecified chronic kidney disease; N18.30 Chronic kidney disease, stage 3 unspecified; Z86.010 Personal history of colon polyps; Z87.19 Personal history of other diseases of the digestive system; Z90.49 Acquired absence of other specified parts of digestive tract; F51.01 Primary insomnia; Z79.899 Other long term (current) drug therapy; Z86.19 Personal history of other infectious and parasitic diseases
CPT/HCPCS: 43239; 88305 ×2; J3490; J2704; 731